=== PATIENT | male | born 1970 | race Caucasian/White ===

== ENCOUNTER 2017-01-06 21:08 | Inpatient (IN) | payer MEDICAID ==
[~2017-01-06] VITALS: Ht 175.3 cm; Wt 89.8 kg
[2017-01-06] MEDS ORDERED: ONDANSETRON HCL 4MG/2ML VIAL IV STA (21:40)
[2017-01-06] MEDS ORDERED: SODIUM CHLORIDE 0.9% 1,000 ML IV ONE ×2 (21:40→23:40)
[2017-01-06] MEDS ORDERED: FAMOTIDINE 20MG/2ML VIAL IV STA (21:40)
[2017-01-06] MEDS ORDERED: MORPHINE SULFATE 10 MG/ML CPJ IV ONE (21:45)
[2017-01-06 22:39] LABS: BASOPHILS % 0.7 % (0.0-2.0); EOSINOPHILS % 0.8 % (0.0-5.0); HEMATOCRIT. 34.3 % (42.0-52.0); HEMOGLOBIN. 11.5 g/dL (14.0-18.0); MEAN CORPUSCULAR HEMOGLOBIN 27.8 pg (28.0-32.0); MEAN CORPUSCULAR VOLUME 82.7 fL (80.0-94.0); MEAN PLATELET VOLUME 8.4 fl (7.4-10.4); MONOCYTES % 2.7 % (2.0-8.0); NEUTROPHILS % 85.8 % (40.0-76.0); PLATELET 297 x1000/uL (130-400); RED BLOOD CELL COUNT 4.14 mill/uL (4.7-6.1); RED CELL DISTRIBUTION WIDTH 14.1 % (11.6-14.6)
[2017-01-06 22:47] LABS: CHLORIDE 102 mEq/L (98-107)
[2017-01-06 22:48] LABS: INR 2.1; PROTHROMBIN TIME 22.2 sec (9.4-11.6)
[2017-01-06 22:56] LABS: CARBON DIOXIDE 18 mEq/L (21-32); ETHANOL BLOOD < 10 mg/dL; TROPONIN I 0.03 ng/mL (0.00-0.04)
[2017-01-06] MEDS ORDERED: METOCLOPRAMIDE HCL 10MG/2ML VIAL IV ONE (23:00)
[2017-01-06] MEDS ORDERED: LORAZEPAM 2MG/ML CPJ IV ONE (23:00)
[2017-01-06] MEDS ORDERED: PIPERACILLIN/TAZ 3.375G PREMIX 50 ML IV ONE (23:45)
[2017-01-06] MEDS ORDERED: METRONIDAZOLE 500 MG PREMIX 100 ML IV ONE (23:45)
[2017-01-06 23:56] LABS: CLARITY URINE CLEAR (CLEAR); COLOR URINE YELLOW (YELLOW); GLUCOSE URINE 1+ (NEGATIVE); KETONES URINE TRACE (NEGATIVE); LEUKOCYTE ESTERASE URINE NEGATIVE (NEGATIVE); NITRITE URINE NEGATIVE (NEGATIVE); OCCULT BLOOD URINE TRACE (NEGATIVE); PH URINE 5.5 (4.5-8.0); PROTEIN URINE 3+ (NEGATIVE); SPECIFIC GRAVITY URINE 1.014 (1.005-1.030); UROBILINOGEN URINE 0.2 E.U./dL (0.2-1.0)
[2017-01-07] MEDS ORDERED: HYDRALAZINE 20MG/ML VIAL IV ONE
[2017-01-07 00:34] LABS: *AMPHETAMINES SCREEN URINE NEGATIVE (NEGATIVE); *BARBITURATES SCREEN URINE NEGATIVE (NEGATIVE); *BENZODIAZEPINES SCREEN URINE PRESUMTIVE POSITIVE (NEGATIVE); *COCAINE SCREEN URINE NEGATIVE (NEGATIVE); CANNABINOID URINE SCREEN PRESUMTIVE POSITIVE (NEGATIVE); METHADONE URINE SCREEN NEGATIVE (NEGATIVE); OPIATES URINE SCREEN PRESUMTIVE POSITIVE (NEGATIVE); PHENCYCLIDINE URINE SCREEN NEGATIVE (NEGATIVE)
[2017-01-07] MEDS ORDERED: METOCLOPRAMIDE HCL 10MG/2ML VIAL IV ONE (00:45)
[2017-01-07] MEDS ORDERED: HYDRALAZINE 20MG/ML VIAL IV PRN ×2 (03:45→06:15)
[2017-01-07] MEDS ORDERED: ONDANSETRON HCL 4MG/2ML VIAL IV PRN (03:45)
[2017-01-07] MEDS: MORPHINE SULFATE 10 MG/ML CPJ IV PRN ×4 (03:59→22:33)
[2017-01-07 04:00] VITALS: BP 187/105
[2017-01-07] MEDS ORDERED: METO10TA3 PO (05:14)
[2017-01-07] MEDS ORDERED: PANT40TA4 PO (05:14)
[2017-01-07] MEDS ORDERED: FISH1CAP34 PO (05:14)
[2017-01-07] MEDS ORDERED: HYDR-4133 PO (05:14)
[2017-01-07] MEDS ORDERED: METO-293 PO (05:14)
[2017-01-07] MEDS ORDERED: QUET200T PO (05:14)
[2017-01-07] MEDS ORDERED: ONDA8TAB6 PO (05:14)
[2017-01-07] MEDS ORDERED: HYDR-4094 PO (05:17)
[2017-01-07] MEDS ORDERED: BENZ1TAB7 PO (05:19)
[2017-01-07] MEDS ORDERED: WARF5TAB73 PO (05:31)
[2017-01-07] MEDS ORDERED: CLON0.3T PO (05:31)
[2017-01-07] MEDS ORDERED: PROP80CA2 PO (05:31)
[2017-01-07] MEDS ORDERED: SENN8.6T21 PO (05:31)
[2017-01-07] MEDS ORDERED: AMLO2.5T45 PO (05:31)
[2017-01-07] MEDS ORDERED: TEMA30CA PO (05:31)
[2017-01-07] MEDS ORDERED: DOCU-150 PO (05:31)
[2017-01-07] MEDS ORDERED: ALPR-393 PO (05:39)
[2017-01-07] MEDS ORDERED: HYDROCORTISONE PO (05:39)
[2017-01-07] MEDS ORDERED: HUMALOG (05:40)
[2017-01-07] MEDS ORDERED: GLUCAGON (05:41)
[2017-01-07] MEDS ORDERED: MORPHINE SULFATE 2 MG/ML CPJ (NOT FOR IM USE) IV PRN (06:15)
[2017-01-07] MEDS ORDERED: LEVOFLOXACIN 250MG PREMIX 50 ML IV SCH (06:15)
[2017-01-07] MEDS ORDERED: METOCLOPRAMIDE HCL 10MG/2ML VIAL IV PRN ×2 (06:15→12:15)
[2017-01-07] MEDS ORDERED: DEXT 5%/0.45% NACL 1000ML 1,000 ML IV SCH (06:15)
[2017-01-07] MEDS ORDERED: LORAZEPAM 2MG/ML CPJ IV PRN (06:15)
[2017-01-07] MEDS ORDERED: DEXTROSE 50% WATER 50ML SYRINGE IV PRN (06:30)
[2017-01-07 08:00] VITALS: BP 192/76
[2017-01-07] MEDS: METRONIDAZOLE 500 MG PREMIX 100 ML IV SCH ×3 (08:04→21:18)
[2017-01-07] MEDS: LEVOFLOXACIN 500MG PREMIX 100 ML IV SCH (08:04)
[2017-01-07] MEDS: INSULIN LISPRO 100 UNITS/ML SUBCUT SCH ×4 (08:10→20:26)
[2017-01-07] MEDS: PANTOPRAZOLE SODIUM 40 MG/VIAL IV SCH (08:11)
[2017-01-07 08:27] LABS: HEMOGLOBIN. 11.1 g/dL (14.0-18.0); MEAN CORPUSCULAR HEMOGLOBIN 27.9 pg (28.0-32.0); MEAN CORPUSCULAR VOLUME 82.9 fL (80.0-94.0); MEAN PLATELET VOLUME 8.2 fl (7.4-10.4); PLATELET 260 x1000/uL (130-400); RED BLOOD CELL COUNT 3.99 mill/uL (4.7-6.1); RED CELL DISTRIBUTION WIDTH 14.1 % (11.6-14.6)
[2017-01-07] MEDS ORDERED: ENALAPRIL 0.625 MG in DEXTROSE 5% WATER 49.5 ML IV PRN (08:45)
[2017-01-07] MEDS ORDERED: ENOXAPARIN 100MG/ML SYR SUBCUT SCH (09:00)
[2017-01-07 09:28] VITALS: BP 192/76
[2017-01-07] MEDS ORDERED: LACTULOSE 20G/30ML UDC PO PRN (10:45)
[2017-01-07] MEDS: ENALAPRIL 1.25MG/ML VIAL 1ML IV PRN ×2 (11:00→20:25)
[2017-01-07] MEDS ORDERED: POTASSIUM CHLORIDE 20MEQ TABLET SR PO SCH (11:00)
[2017-01-07 12:00] VITALS: BP 164/113
[2017-01-07] MEDS ORDERED: MAGNESIUM 2 G PREMIX 50 ML IV SCH (12:00)
[2017-01-07] MEDS: ALPRAZOLAM 0.5 MG TABLET PO PRN ×2 (12:02→20:24)
[2017-01-07] MEDS: SODIUM CHLORIDE 0.9% 1,000 ML IV SCH (12:13)
[2017-01-07 16:00] VITALS: BP 118/78
[2017-01-07 17:50] LABS: PLATELET ESTIMATE NORMAL
[2017-01-07 20:00] VITALS: BP 169/107
[2017-01-07] MEDS: BLOOD SUGAR DIAGNOSTIC STRIP TEST SCH (20:25)
[2017-01-07] MEDS: ONDANSETRON HCL 4MG/2ML VIAL IV PRN (20:25)
[2017-01-07] MEDS ORDERED: PROPRANOLOL HCL 80 MG PO SCH (21:30)
[2017-01-07] MEDS ORDERED: PROPRANOLOL HCL 20MG TABLET PO SCH (22:30)
[2017-01-07] MEDS ORDERED: QUETIAPINE FUMARATE 100MG TABLET PO SCH (22:30)
[2017-01-07] MEDS ORDERED: TEMAZEPAM 15MG CAPSULE PO SCH (22:30)
[2017-01-08] VITALS (7 sets, daily range): BP systolic 106–150; BP diastolic 65–96
[2017-01-08] MEDS: SODIUM CHLORIDE 0.9% 1,000 ML IV SCH ×2 (03:24→12:20)
[2017-01-08] MEDS: METRONIDAZOLE 500 MG PREMIX 100 ML IV SCH ×2 (05:55→13:35)
[2017-01-08 06:40] LABS: INR 1.8; PROTHROMBIN TIME 18.6 sec (9.4-11.6)
[2017-01-08 07:20] LABS: BASOPHILS % 0.8 % (0.0-2.0); EOSINOPHILS % 0.4 % (0.0-5.0); HEMATOCRIT. 28.6 % (42.0-52.0); HEMOGLOBIN. 9.7 g/dL (14.0-18.0); LYMPHOCYTES % 30.2 % (20.0-50.0); MEAN CORPUSCULAR HEMOGLOBIN 28.5 pg (28.0-32.0); MEAN CORPUSCULAR VOLUME 83.9 fL (80.0-94.0); MONOCYTES % 7.6 % (2.0-8.0); PLATELET 200 x1000/uL (130-400); RED BLOOD CELL COUNT 3.41 mill/uL (4.7-6.1); RED CELL DISTRIBUTION WIDTH 14.6 % (11.6-14.6)
[2017-01-08] MEDS: BLOOD SUGAR DIAGNOSTIC STRIP TEST SCH ×2 (07:42→11:49)
[2017-01-08] MEDS: INSULIN LISPRO 100 UNITS/ML SUBCUT SCH ×2 (07:54→12:22)
[2017-01-08] MEDS: FISH OIL/OMEGA-3 FATTY ACIDS 1000MG CAPSULE PO SCH ×3 (08:48→16:26)
[2017-01-08] MEDS: HYDRALAZINE HCL 10MG TABLET PO SCH ×3 (08:50→16:26)
[2017-01-08] MEDS: METOCLOPRAMIDE HCL 10MG TABLET PO SCH ×2 (08:50→12:20)
[2017-01-08] MEDS: HYDROCORTISONE 20MG TABLET PO SCH ×2 (08:51→16:26)
[2017-01-08] MEDS: DOCUSATE SODIUM 250MG CAPSULE PO SCH ×2 (08:51→16:26)
[2017-01-08] MEDS: LEVOFLOXACIN 500MG PREMIX 100 ML IV SCH (08:52)
[2017-01-08] MEDS: PANTOPRAZOLE SODIUM 40 MG/VIAL IV SCH (08:52)
[2017-01-08] MEDS ORDERED: AMLODIPINE 2.5MG TABLET PO SCH (09:00)
[2017-01-08] MEDS ORDERED: CLONIDINE 0.3MG TABLET PO SCH (09:00)
[2017-01-08] MEDS ORDERED: HYDROCODONE/ACETAMINOPHEN 10/325MG TABLET PO SCH ×3 (09:00→17:00)
[2017-01-08] MEDS ORDERED: HYDROCORTISONE 10 MG PO SCH (09:00)
[2017-01-08] MEDS ORDERED: BENZTROPINE MESYLATE 1MG TABLET PO SCH (09:00)
[2017-01-08] MEDS: MORPHINE SULFATE 10 MG/ML CPJ IV PRN (10:49)
[2017-01-08] MEDS: ONDANSETRON HCL 4MG/2ML VIAL IV PRN (10:52)
[2017-01-08] MEDS ORDERED: PROPRANOLOL HCL 20MG TABLET PO SCH (11:35)
[2017-01-08] MEDS ORDERED: POTASSIUM CHLORIDE 20MEQ TABLET SR PO NR (11:45)
[2017-01-08] MEDS ORDERED: WARFARIN SODIUM 5MG TABLET PO SCH (18:00)
[2017-01-08] MEDS ORDERED: MEDICATION NOT ON FORMULARY EA (Quetiapine Fumarate (Seroquel) 200 MG) PO SCH (21:00)
[2017-01-08] MEDS ORDERED: TEMAZEPAM 30 MG PO SCH (21:00)
[2017-01-09] MEDS ORDERED: PANTOPRAZOLE 40MG DR TABLET PO SCH (07:40)
[2017-01-10] MEDS ORDERED: LEVOFLOXACIN 750MG PREMIX 150 ML IV SCH (09:00)
== END 2017-01-08 16:50 | disposition home or self-care (01) | DRG 241 ==
LOC: ER 21:33 → 7WST 01-07 00:11 → EDBEDREQ 01-07 00:12 → EDBEDREQTM 01-07 00:12 → ENRESERV 01-07 03:19
PROVIDERS: ADMIT Family Medicine Adult Medicine; ATTEND Family Medicine Adult Medicine
DX: K25.9 Gastric ulcer, unspecified as acute or chronic, without hemorrhage or perforation (principal); E87.2 Acidosis; D68.9 Coagulation defect, unspecified; E11.22 Type 2 diabetes mellitus with diabetic chronic kidney disease; E11.40 Type 2 diabetes mellitus with diabetic neuropathy, unspecified; E27.40 Unspecified adrenocortical insufficiency; E44.1 Mild protein-calorie malnutrition; M32.9 Systemic lupus erythematosus, unspecified; E78.1 Pure hyperglyceridemia; F12.90 Cannabis use, unspecified, uncomplicated; F43.10 Post-traumatic stress disorder, unspecified; J45.909 Unspecified asthma, uncomplicated; K59.00 Constipation, unspecified; N18.9 Chronic kidney disease, unspecified; K57.90 Diverticulosis of intestine, part unspecified, without perforation or abscess without bleeding; R00.0 Tachycardia, unspecified; Z90.49 Acquired absence of other specified parts of digestive tract; I12.9 Hypertensive chronic kidney disease with stage 1 through stage 4 chronic kidney disease, or unspecified chronic kidney disease; Z86.718 Personal history of other venous thrombosis and embolism; Z86.74 Personal history of sudden cardiac arrest; Z68.29 Body mass index [BMI] 29.0-29.9, adult; Z88.8 Allergy status to other drugs, medicaments and biological substances; Z91.041 Radiographic dye allergy status
CPT/HCPCS: 36415; 71010; 74176; 80048; 80053; 80076; 80305; 81001; 82962; 83605; 83690; 83735; 83880; 84484; 85025; 85610; 87040; 87086; 93005; 96361; 96365; 96367; 96375; 96376; 99285; C9113; G0482; J0360; J1650; J1956; J2060; J2270; J2405; J2543; J2765; J3475; J3490; J7030; J8597